=== PATIENT | male | born 1995 | race Caucasian/White ===

== ENCOUNTER 2017-08-22 21:26 | Emergency (ER) | payer OTHER ==
[2017-08-22 21:46] VITALS: O2SAT 98
[2017-08-22] MEDS ORDERED: Rocephin 1000 MG INJ IM ONE (21:50)
--- NOTE | 2017-08-22 21:50 | ERPHSYRPT ---
- History of Present Illness Time Seen by Provider: 08/22/17 21:45 Source: patient Exam Limitations: no limitations Physician History: boil on right forearm near wrist area, started 4-5 days ago. no fever, seen at [facility] and started on bactrim ds Timing/Duration: day(s) Quality: painful Severity: mild Location: extremities Possible Causes: no cause identified Associated Symptoms: denies symptoms Allergies/Adverse Reactions: dextromethorphan HBr [From NyQuil] Adverse Reaction (Verified 12/15/15 02:45) doxylamine [From NyQuil] Adverse Reaction (Verified 12/15/15 02:45) pseudoephedrine HCl [From NyQuil] Adverse Reaction (Verified 12/15/15 02:45) Hx Tetanus, Diphtheria Vaccination/Date Given: Yes Hx Influenza Vaccination/Date Given: No Hx Pneumococcal Vaccination/Date Given: No - Review of Systems Constitutional: No Symptoms Eyes: No Symptoms Ears, Nose, & Throat: No Symptoms Respiratory: No Symptoms Cardiac: No Symptoms Abdominal/Gastrointestinal: No Symptoms Skin: Cellulitis, Induration - Past Medical History Pertinent Past Medical History: No Neurological History: No Pertinent History ENT History: No Pertinent History Cardiac History: No Pertinent History Respiratory History: No Pertinent History Endocrine Medical History: No Pertinent History Musculoskeletal History: No Pertinent History GI Medical History: No Pertinent History History: No Pertinent History Psycho-Social History: No Pertinent History - Past Surgical History Past Surgical History: Yes Gastrointestinal: Hernia Repair Other Surgical History: hernia - Social History Smoking Status: Never smoker Exposure to second hand smoke: No Drug Use: none Patient Lives Alone: No - Nursing Vital Signs Nursing Vital Signs: Initial Vital Signs Temperature 98.2 F 08/22/17 21:39 Pulse Rate 72 08/22/17 21:39 Respiratory Rate 18 08/22/17 21:39 Blood Pressure 177/88 08/22/17 21:39 O2 Sat by Pulse Oximetry 98 08/22/17 21:39 Pain Scale Pain Intensity 0 - Physical Exam General Appearance: no apparent distress Eye Exam: PERRL/EOMI Ears, Nose, Throat Exam: normal ENT inspection Neck Exam: normal inspection Respiratory Exam: normal breath sounds Cardiovascular Exam: regular rate/rhythm Gastrointestinal/Abdomen Exam: soft Extremity Exam: inflammation - Course Nursing assessment & vital signs reviewed: Yes Ordered Tests: Medication Summary Generic Name Dose Route Start Last Admin Trade Name Freq PRN Reason Stop Dose Admin Ceftriaxone Sodium 1,000 mg 08/22/17 21:50 Rocephin 1000 Mg Inj IM 08/22/17 21:51 STAT ONE - Progress Progress: unchanged Counseled pt/family regarding: diagnosis, need for follow-up - Departure Time of Disposition: 21:50 Departure Disposition: Home Clinical Impression: Furuncle of forearm Condition: Stable Critical Care Time: No Referrals: RODRI VYAS [ACTIVE STAFF] - Instructions: Boil, Skin Abscess Additional Instructions: continue antibiotics as prescribed, See Dr Linda Vyas on friday, apply provided cream twice a day.
[2017-08-22] MEDS ORDERED: Rocephin 1000 MG INJ ONE (21:52)
[2017-08-22] MEDS ORDERED: XYLOCAINE 1% HCL 20 ML MDV ONE (21:53)
[2017-08-22 22:12] VITALS: BP 141/89; PULSE 70
== END 2017-08-22 22:12 | disposition home or self-care (01) ==
LOC: ED 21:26
DX: L02.423 Furuncle of right upper limb (principal)
CPT/HCPCS: 96372; 99282; 99284; J0696